=== PATIENT | male | born 1970 | race Caucasian/White ===

== ENCOUNTER 2017-12-15 08:59 | Emergency (ER) | payer MEDICAID, OTHER ==
[2017-12-15 09:27] LABS: ADD MAN DIFF? NO
[2017-12-15 09:29] LABS: BASOPHIL # 0.1 10^3/ul (0.0-0.1); BASOPHILS % 0.7 % (0.0-2.0); EOSINOPHILS # 0.8 10^3/ul (0.0-0.5); EOSINOPHILS % 10.4 % (0.0-7.0); HEMATOCRIT 46.7 % (42.0-52.0); HEMOGLOBIN 15.5 g/dl (14.0-18.0); LYMPHOCYTES # 1.9 10^3/ul (0.8-2.9); LYMPHOCYTES % 25.5 % (15.0-51.0); MEAN CORPUSCULAR HEMOGLOBIN 30.2 pg (29.0-33.0); MEAN CORPUSCULAR HGB CONC 33.2 g/dl (32.0-37.0); MEAN CORPUSCULAR VOLUME 90.9 fl (82.0-101.0); MEAN PLATELET VOLUME 9.4 fl (7.4-10.4); MONOCYTE # 0.7 10^3/ul (0.3-0.9); MONOCYTES % 9.2 % (0.0-11.0); NEUTROPHIL # 3.9 10^3/ul (1.6-7.5); NEUTROPHILS % 53.5 % (39.0-77.0); PLATELET COUNT 291 10^3/UL (140-415); RED BLOOD COUNT 5.14 10^6/ul (4.70-6.10); RED CELL DISTRIBUTION WIDTH 11.7 % (11.5-14.5)
[2017-12-15 09:29] LABS: WHITE BLOOD COUNT 7.3 10^3/ul (4.8-10.8)
[2017-12-15] MEDS: LORAZEPAM 0.5 MG TAB PO (09:47)
[2017-12-15] MEDS: SOD CHLORIDE 0.9% 1,000 ML IV (09:47)
[2017-12-15] MEDS: KETOROLAC 15 MG INJ IV (09:47)
[2017-12-15 09:50] LABS: ALANINE AMINOTRANSFERASE 29 IU/L (13-69); ALBUMIN 4.3 g/dl (3.3-4.9); ALBUMIN/GLOBULIN RATIO 1.16; ALKALINE PHOSPHATASE 89 IU/L (42-121); ANION GAP 11 (5-13); ASPARTATE AMINO TRANSFERASE 21 IU/L (15-46); BILIRUBIN,INDIRECT 1.1 mg/dl (0-1.1); BILIRUBIN,TOTAL 1.1 mg/dl (0.2-1.3); BLOOD UREA NITROGEN 15 mg/dl (7-20); CALCIUM 9.5 mg/dl (8.4-10.2); CARBON DIOXIDE 28 mmol/L (21-31); CHLORIDE 104 mmol/L (97-110); CREATININE 0.89 mg/dl (0.61-1.24); Estimated GFR > 60 mL/min (>60); GLUCOSE 91 mg/dl (70-220); LIPASE 56 U/L (23-300); SODIUM 143 mmol/L (135-144)
[2017-12-15 10:01] LABS: TROPONIN-I 0.015 ng/ml (0.000-0.120)
== END 2017-12-15 11:30 | disposition home or self-care (01) ==
LOC: E/R 08:59
DX: F43.0 Acute stress reaction (principal)
CPT/HCPCS: 36415; 71045; 80053; 83690; 84484; 85025; 93005; 96374; 99285-25

== ENCOUNTER 2017-12-15 14:00 | Emergency (ER) | payer MEDICAID | END 2017-12-15 16:16 | disposition left against medical advice (07) | LOC: E/R 14:00 | DX: Z53.21 Procedure and treatment not carried out due to patient leaving prior to being seen by health care provider (principal) ==